=== PATIENT | male | born 1995 | race African-American/Black ===

== ENCOUNTER 2022-01-16 05:35 | Emergency (ER) | payer OTHER ==
[~2022-01-16] VITALS: Ht 180.3 cm; Wt 79.5 kg
[2022-01-16 07:10] VITALS: BP 121/68
== END 2022-01-16 08:00 | disposition home or self-care (01) ==
LOC: EMS 05:36
DX: Z53.21 Procedure and treatment not carried out due to patient leaving prior to being seen by health care provider (principal)